=== PATIENT | male | born 1995 | race American Indian/Alaskan Native ===

== ENCOUNTER 2016-08-07 00:51 | Emergency (ER) | payer MEDICAID ==
[2016-08-07 01:02] VITALS: TEMP 98.5
--- NOTE | 2016-08-07 01:17 | ED PDOC ---
Arrival/HPI - General Historian: Patient - History of Present Illness Time/Duration: Prior to Arrival Symptom Course: Unchanged Context: Home <Maria Alejandra,Sanjana - Last Filed: 08/07/16 02:53> <Sampson Murillo - Last Filed: 08/07/16 02:57> - General Chief Complaint: Dental Pain Time Seen by Provider: 08/07/16 00:53 - History of Present Illness Narrative History of Present Illness (Text): 08/07/16 01:17 Impression: 20 yo Male with no signifcant medical history presented to ED with right sided dental pain. Patient states the pain has been intermittent since last week. Tonight he started to have pain that was 10/10, sharp pain. He previously took Tylenol and Advil however the pain continued. He states the pain is located preauricular and does not radiate. He states pain is worse with drink water. He denies any recent dental procedures. One year ago he had wisdom teeth extracted , denies any complications. PMD: Osorio (Sanjana Bess) Past Medical History - Provider Review Nursing Documentation Reviewed: Yes - Infectious Disease Hx of Infectious Diseases: None - Psychiatric Hx Substance Use: No - Anesthesia Hx Anesthesia: No Hx Anesthesia Reactions: No Hx Malignant Hyperthermia: No <Sanjana Bess - Last Filed: 08/07/16 02:53> Family/Social History - Physician Review Nursing Documentation Reviewed: Yes Family/Social History: No Known Family HX Smoking Status: Light Smoker < 10 Cigarettes Daily Hx Alcohol Use: No Hx Substance Use: No <Sanjana Bess - Last Filed: 08/07/16 02:53> Allergies/Home Meds <Sanjana Bess - Last Filed: 08/07/16 02:53> <Sampson Murillo - Last Filed: 08/07/16 02:57> Allergies/Adverse Reactions: Allergies No Known Allergies Allergy (Verified 08/07/16 00:58) Review of Systems - Review of Systems Constitutional: Normal. absent: Fatigue, Fevers Eyes: Normal. absent: Vision Changes ENT: Normal, Other (tenderness on right side of face). absent: Sore Throat, Rhinorrhea, Sinus Congestion Respiratory: Normal. absent: SOB, Cough, Wheezing Cardiovascular: Normal. absent: Chest Pain, Palpitations, Calf Pain, Syncope Gastrointestinal: Normal. absent: Abdominal Pain, Constipation, Diarrhea, Nausea, Vomiting Genitourinary Male: Normal. absent: Dysuria, Frequency, Hematuria Musculoskeletal: Normal. absent: Arthralgias, Back Pain, Myalgias Skin: Normal. absent: Rash, Pruritis, Laceration Neurological: Normal. absent: Headache, Dizziness Endocrine: Normal. absent: Diaphoresis, Polyuria, Polydipsia Hemo/Lymphatic: Normal. absent: Easy Bleeding, Easy Bruising Psychiatric: Normal. absent: Anxiety, Depression <Sanjana Bess - Last Filed: 08/07/16 02:53> Physical Exam - Systems Exam Head: Present: Atraumatic, Normocephalic Pupils: Present: PERRL. No: Sluggish, Non-Reactive, Pinpoint Extroacular Muscles: Present: EOMI. No: Gaze Palsy, Entrapment Conjunctiva: Present: Normal Mouth: Present: Moist Mucous Membranes, Normal Teeth (tender) Pharnyx: Present: Normal. No: ERYTHEMA, EXUDATE, TONSILS ENLARGED, Uvular Deviation, Muffled/Hoarse Voice Nose (External): Present: Atraumatic Neck: Present: Normal Range of Motion Respiratory/Chest: Present: Clear to Auscultation, Good Air Exchange. No: Respiratory Distress, Accessory Muscle Use, Wheezes, Rales, Rhonchi, Tachypneic Cardiovascular: Present: Regular Rate and Rhythm, Normal S1, S2. No: Murmurs, Tachycardic Abdomen: Present: Normal Bowel Sounds. No: Tenderness, Distention, Peritoneal Signs Back: Present: Normal Inspection Upper Extremity: Present: Normal Inspection. No: Cyanosis, Edema Lower Extremity: Present: Normal Inspection. No: Edema Neurological: Present: GCS=15, CN II-XII Intact, Speech Normal Skin: Present: Warm, Dry, Normal Color. No: Rashes Psychiatric: Present: Alert, Oriented x 3, Normal Insight, Normal Concentration <Sanjana Bess - Last Filed: 08/07/16 02:53> Medical Decision Making <Sanjana Bess - Last Filed: 08/07/16 02:53> <Sampson Murillo - Last Filed: 08/07/16 02:57> ED Course and Treatment: 08/07/16 01:12 Impression: 20 yo male with no significant PMH presented to right sided tooth pain and right sided face pain. Differential diagnoses include but not limited to: - dental caries, abscess Plan: - abx - toradol 08/07/16 02:48 - patient states pain has improved but is still present. Will give dose of tramadol. Patient is to follow up with dentist and PMD. He is agreeable with being discharged home. (Sanjana Bess) 08/07/16 01:36 Patient Seen With Resident: In agreement with resident note which contains more details about the patient. Patient was seen and evaluated with resident. Came up with plan and treatment together. A 20 year old male who presents to the emergency department complaining of intermittent right sided dental pain. antibiotics and toradol. 08/07/16 02:56 patient states pain has improved post treatment. Patient stable for discharge. Advised to follow up with dentist and return to emergency department for worsening symptoms. (Sampson Murillo) - Medication Orders Current Medication Orders: Discontinued Medications Amoxicillin (Amoxil 500 Mg Cap) 500 mg PO STAT STA PRN Reason: Protocol Stop: 08/07/16 01:10 Last Admin: 08/07/16 01:27 Dose: 500 mg Ketorolac Tromethamine (Toradol) 60 mg IM STAT STA Stop: 08/07/16 01:09 Last Admin: 08/07/16 01:27 Dose: 60 mg Tramadol HCl (Ultram) 50 mg PO STAT STA Stop: 08/07/16 02:40 <Sanjana Bess - Last Filed: 08/07/16 02:53> - PA / CERTIFICATION OFFICER / Resident Statement / has reviewed & agrees with the documentation as recorded. / has examined the patient and agrees with the treatment plan. <Sampson Murillo - Last Filed: 08/07/16 02:57> - Scribe Statement Peewee Roberts Provider Scribe Attestation: All medical record entries made by the Scribe were at my direction and personally dictated by me. I have reviewed the chart and agree that the record accurately reflects my personal performance of the history, physical exam, medical decision making, and the department course for this patient. I have also personally directed, reviewed, and agree with the discharge instructions and disposition. (Sampson Murillo) Disposition/Present on Arrival - Present on Arrival Any Indicators Present on Arrival: No History of DVT/PE: No History of Uncontrolled Diabetes: No Urinary Catheter: No History of Decub. Ulcer: No History Surgical Site Infection Following: None - Disposition Have Diagnosis and Disposition been Completed?: Yes Disposition Time: 02:50 Patient Plan: Discharge <Sanjana Bess - Last Filed: 08/07/16 02:53> <Sampson Murillo - Last Filed: 08/07/16 02:57> - Disposition Diagnosis: Pain, dental Disposition: HOME/ ROUTINE Condition: GOOD Discharge Instructions (ExitCare): Toothache (ED) Additional Instructions: Kam Cervantes, thank you for letting us take care of you today. Your provider was Dr. Bess and Dr. Murillo. You were treated for dental pain. The emergency medical care you received today was directed at your acute symptoms. If you were prescribed any medication, please fill it and take as directed. It may take several days for your symptoms to resolve. Return to the Emergency Department if your symptoms worsen, do not improve, or if you have any other problems. Please follow up with your dentist in 1-2 days. Please contact your doctor or call one of the physicians/clinics you have been referred to that are listed on the Patient Visit Information form that is included in your discharge packet. Bring any paperwork you were given at discharge with you along with any medications you are taking to your follow up visit. Our treatment cannot replace ongoing medical care by a primary care provider (PCP) outside of the emergency department. Thank you for allowing the [facility] team to be part of your care today. Prescriptions: Amoxicillin 500 mg PO BID #20 tablet Tramadol HCl [Ultram] 50 mg PO QID #8 tab
[2016-08-07 03:18] VITALS: BP 135/86; PULSE 72; RESP 16; O2SAT 98
== END 2016-08-07 03:18 | disposition home or self-care (01) ==
LOC: ED 00:51
DX: K08.89 Other specified disorders of teeth and supporting structures (principal); Z72.0 Tobacco use
CPT/HCPCS: 96372; 99282; J1885